=== PATIENT | female | born 1945 | race Caucasian/White ===

== ENCOUNTER 2018-02-11 15:06 | Emergency (ER) | payer MEDICARE, OTHER ==
[~2018-02-11] VITALS: Ht 160 cm; Wt 103.0 kg
[2018-02-11 15:41] VITALS: BP 203/91
[2018-02-11] MEDS ORDERED: CEPH500C5 PO (17:27)
== END 2018-02-11 17:43 | disposition home or self-care (01) ==
LOC: ER 15:07
DX: M79.605 Pain in left leg (principal); M79.89 Other specified soft tissue disorders; Z88.8 Allergy status to other drugs, medicaments and biological substances
CPT/HCPCS: 93971; 99284